=== PATIENT | male | born 1935 | race Caucasian/White ===

== ENCOUNTER 2019-01-07 14:34 | Inpatient (IN) | payer OTHER ==
[~2019-01-07] VITALS: Ht 182.9 cm; Wt 119.3 kg
[~2019-01-07 14:34] MED LIST: AMARYL2 M1 PO; GABAPENTIN 100100 MG PO; LEVAQUIN 500 M500 M2 PO; LEVOTHYROXIN0.125 M1 PO; LIPITOR10 MG PO; TRAMADOL 50 MG50 MG PO; VALACYCLOVIR500 MG PO; ZOFRAN ODT4 MG DISSOLVE
[2019-01-07 14:40] VITALS: BP 172/94
[2019-01-07 14:57] LABS: ABSOLUTE BASOPHILS 0.1 thou/uL (0.0-0.2); ABSOLUTE EOSINOPHILS 0.3 thou/uL (0.0-0.7); ABSOLUTE LYMPHOCYTES 2.3 thou/uL (0.8-5.3); ABSOLUTE MONOCYTES 0.9 thou/uL (0.0-1.2); BASOPHILS 0.7 %; EOSINOPHILS 2.6 %; HEMATOCRIT 42.4 % (42.0-52.0); HEMOGLOBIN 14.6 gm/dL (14.0-18.0); MCH 29.9 pg (26.0-34.0); MCHC 34.5 g/dL (28.0-37.0); MCV 86.5 fL (80.0-100.0); MONOCYTES 9.4 %; MPV 7.9 fl. (7.2-11.1); NUCLEATED RBCS 0 /100WBC; PLATELET COUNT* 229 thou/uL (150-400); POLYS 63.3 %; RDW-CV 14.4 % (10.5-14.5); WBC 9.5 thou/uL (4.0-11.0)
[2019-01-07 15:08] LABS: PROTIME 10.4 Seconds (9.20-11.50)
[2019-01-07 15:11] LABS: ANION GAP 10 mmol/L (7-16); BUN 17 mg/dL (7-18); CALCIUM 9.9 mg/dL (8.5-10.1); CHLORIDE 99 mmol/L (98-107); CO2 27 mmol/L (21-32); CREATININE 1.2 mg/dL (0.6-1.3); GLUCOSE 272 mg/dL (70-99); POTASSIUM 4.3 mmol/L (3.5-5.1); SODIUM 136 mmol/L (136-145)
[2019-01-07 15:22] LABS: ALBUMIN 3.7 g/dL (3.4-5.0); ALKALINE PHOSPHATASE 70 U/L (46-116); LIPASE 100 U/L (73-393); NT-PRO BRAIN NAT PEPTIDE 69 pg/mL (<300); SGOT 23 U/L (15-37); SGPT 41 U/L (30-65); TOTAL PROTEIN 7.4 g/dL (6.4-8.2); TROPONIN-I LEVEL <0.06 ng/mL (<0.06)
[2019-01-07 19:00] VITALS: BP 151/79
[2019-01-07 20:20] VITALS: BP 157/71
[2019-01-07 23:56] VITALS: BP 132/68
[2019-01-08 04:00] VITALS: BP 150/58
[2019-01-08 04:19] LABS: HEMATOCRIT 39.7 % (42.0-52.0); HEMOGLOBIN 13.7 gm/dL (14.0-18.0); MCH 29.8 pg (26.0-34.0); MCHC 34.5 g/dL (28.0-37.0); MCV 86.3 fL (80.0-100.0); MPV 7.7 fl. (7.2-11.1); RBC 4.6 mil/uL (4.50-6.00); RDW-CV 13.9 % (10.5-14.5); WBC 9.5 thou/uL (4.0-11.0)
[2019-01-08 04:59] LABS: ALBUMIN 3.1 g/dL (3.4-5.0); CREATININE 1.2 mg/dL (0.6-1.3); POTASSIUM 4.1 mmol/L (3.5-5.1); TOTAL BILIRUBIN 0.7 mg/dL (<0.1-1.0); TOTAL PROTEIN 6.3 g/dL (6.4-8.2)
[2019-01-08 08:00] VITALS: BP 156/80
--- NOTE | 2019-01-08 11:15 | EKG ---
[place] [address] ELECTROCARDIOGRAM REPORT Name: PAM WILLIAMSON Room: [address] ADM IN [facility].#: [id number] Admission: 01/07/19 Attend Phys: Tru Haney Discharge: Date of : 39 Report #: [id number] THIS REPORT FOR: //name// [facility] ED Test Date: 2019-01-07 Test Time: 14:37:32 Pat Name: PAM WILLIAMSON Department: Room: [facility] Gender: M Equalizer Operator: TP : 1935 Requested By: Alexia Hahn Order Number: [id number] MD: Paul Ramírez Measurements Intervals [place] Rate: 76 P: -23 MD: 228 QRS: -65 QRSD: 145 T: 47 QT: 418 QTc: 471 Interpretive Statements Sinus rhythm Prolonged MD interval RBBB and LAFB Left ventricular hypertrophy Baseline wander in lead(s) III,V4 Compared to ECG 02/25/2016 10:37:56 First degree AV block now present Electronically Signed On 01-08-2019 11:15:03 CDT by Paul Ramírez [email or web address] <ELECTRONICALLY SIGNED> By: Paul Ramírez MD, [facility] 01/08/19 1115 1437 1437 Paul Ramírez MD, [facility] /EPI
--- NOTE | 2019-01-08 11:19 | EKG ---
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
[2019-01-08 11:46] VITALS: BP 140/83
[2019-01-08 15:58] VITALS: BP 170/80
[2019-01-08 16:33] VITALS: BP 170/80
--- NOTE | 2019-01-09 14:54 | CARDNUC ---
[place] [address] CARDIAC NUCLEAR IMAGING REPORT Name: WILLIAMSONPAMRICHARD SNIDER Room: [address] IN [facility]#: [id number] Admission: 01/07/19 Attend Phys: Freddy Morton Discharge: 01/08/19 Date of : 39 Date of Service: 01/09/19 1453 Report #: [id number] THIS REPORT FOR: //name// APPROVED REPORT Imaging Protocol: Stress Tc-99m/Rest Tc-99m 2 days Study performed: 01/08/2019 08:54:00 Indication: Chest pain, left sided facial numbness. Patient Location: In-Patient Room #: [facility] Stress Tech: Olivia Puga Stress Nurse: Catrina Trevizo RN NM Tech:RAFAEL Yost Ht: 6 ft 0 in Wt: 263 lbs BSA: 2.39 m2 BMI: 35.66 Medical History Medical History: Angina, Cardiomyopathy, Diabetes, Fatigue, RBBB, LVH, LAFB, Systolic Murmur, HTN, Obesity , Weakness . Medications: Metformin, No cardiac meds. Allergies: Acetaminophen, Diphenhydramine. Cardiac Risk Factors: Age, DM, HTN, family HX unknown. Previous Cardiac Procedures: None Pretest Chest Pain Characteristics: No chest pain Exercise History: Indeterminate Physical Disabilities: Generalized weakness/fatigue, unsteady gait. Meds Held (24 hrs): None Resting Data Rest SPECT myocardial perfusion imaging was performed in supine position 30 minutes following the intravenous injection of 29.0 mCi of Tc-99m Sestamibi. Time of rest injection: 1020 Date: 01/09/2019 The images were gated to evaluate regional wall motion and calculate left ventricular ejection fraction. Administration Route: Straight Stick Administration Site: Right Arm Pharmacologic Stress Pharmacologic stress test was performed by injecting Regadenoson 0.4 mg IV push over 10-15 seconds immediately followed by the intravenous injection of 35.9 mCi of Tc-99m [place] [address] CARDIAC NUCLEAR IMAGING REPORT Name: PAM WILLIAMSON Room: [address]#: [id number] Admission: 01/07/19 Attend Phys: Freddy Morton Discharge: 01/08/19 Date of : 39 Date of Service: 01/09/19 1453 Report #: [id number] Time of stress injection: 1335 Date: 01/08/2019 Administration Route: IV Administration Site: Right Arm Gated Stress SPECT was performed 40 minutes after stress injection. The images were gated to evaluate regional wall motion and calculate left ventricular ejection fraction. Prone imaging was performed. Stress Test Details Stress Test: Pharmacologic stress testing performed using 0.4 mg of regadenoson per 5 mL given IV over 10 seconds. Reason for pharmacologic stress test: Generalized weakness, unsteady gait.. HR Max Heart Rate (APMHR): 139 bpm Resting HR: 62 bpm Target HR (85% APMHR): 118 bpm Max HR Achieved: 93 bpm % of APMHR: 66 Recovery HR: 86 bpm BP Resting BP: 157/93 mmHg Max BP: 131/87 mmHg Recovery BP: 155/95 mmHg ECG Resting ECG: Sinus Rhythm, RBBB Stress ECG: Sinus Rhythm, RBBB ST Change: None Arrhythmia: None Recovery ECG: Sinus Rhythm, RBBB Recovery ST Change: None Recovery Arrhythmia: None Clinical Reason for Termination: Completed protocol Stress Symptoms: Nausea Exercise duration: 00 min 00 sec Exercise capacity: 1.00 METs The patient tolerated Lexiscan infusion without significant cardiac symptoms. Nurse Comments An 83 year old male inpatient presented for sitting Lexiscan stress test r/t recent HX of CP and left sided facial numbness. Patient tolerated test well. Recovery unremarkable with PO caffeine, [place] [address] CARDIAC NUCLEAR IMAGING REPORT Name: PAM WILLIAMSON Room: [address] IN M..#: [id number] Admission: 01/07/19 Attend Phys: Freddy Morton Discharge: 01/08/19 Date of : 39 Date of Service: 01/09/19 1453 Report #: [id number]. Patient was escorted via wheelchair by staff to Nuclear Medicine for images. Patient was stable with no complaints at that time. Stress ECG Conclusion The baseline 12-lead EKG shows right bundle branch block and sinus rhythm without acute ST or T wave abnormality. EKGs obtained during and post exercise infusion show sinus rhythm with no significant ST or T wave changes when compared to baseline. There were no stress-induced arrhythmias. Study Quality Study: Fair Artifact: Moderate Diaphragmatic artifact Study Data At rest, the left ventricular ejection fraction was 50%.. Post stress, the left ventricular ejection was 53%.. TID = 0.89. Perfusion Perfusion images at rest and post Lexiscan stress show a large in size moderate intensity defect involving the base to distal inferior wall. No reversible defects were identified. Review of the raw data does show significant attenuation artifact. Wall Motion Gated images show akinesis of the anterior anteroseptal wall. No other wall motion abnormalities were noted. Nuclear Conclusion ECG Findings: negative for ischemia Clinical Findings: negative for ischemia Nuclear Findings: negative for ischemia Exercise Capacity: not assessed Left Ventricular Function: abnormal Myocardial perfusion images suggest prior infarct of the inferior wall. There is a extracardiac uptake and diaphragmatic attenuation artifact in this region however there are also wall motion abnormalities observed on gated studies in the inferior wall. No reversible defects were identified to suggest ongoing ischemia. Left ventricular systolic function appeared mildly decreased. This is not a high risk study. <Conclusion> The baseline 12-lead EKG shows right bundle branch [place] [address] CARDIAC NUCLEAR IMAGING REPORT Name: PAM WILLIAMSON Room: [address] IN [facility]#: [id number] Admission: 01/07/19 Attend Phys: Freddy Morton Discharge: 01/08/19 Date of : 39 Date of Service: 01/09/19 1453 Report #: [id number] rhythm without acute ST or T wave abnormality. EKGs obtained during and post exercise infusion show sinus rhythm with no significant ST or T wave changes when compared to baseline. There were no stress-induced arrhythmias. <ELECTRONICALLY SIGNED> By: René Logan MD, FACC 01/09/19 1453 52 52 René Logan MD, FACC /INF
--- NOTE | 2019-01-10 08:16 | CON ---
[address] [address] CONSULTATION Name: WILLIAMSONPAMRICHARD SNIDER Room: [address] IN M.R.#: [id number] Admission: 01/07/19 Attend Phys: Tru Haney Discharge: 01/08/19 Date of : 39 Report #: [id number] THIS REPORT FOR: //name// CC: Jason Salas DATE OF SERVICE: 01/08/2019 CARDIOLOGY CONSULTATION HISTORY OF PRESENT ILLNESS: The patient is an 83-year-old white male who I was asked to see in the hospital after he complained of chest pain. The patient is actually followed by Dr. Laboy a garment form assembler in [place]. He has a long history of chest pain. He apparently has had stress test in the past, but never had a heart catheterization. He has a long history of a heart murmur. He was told he had mild aortic stenosis. He is not very active because of chronic back pain. He has had previous epidurals and a cortisone injection in his shoulder in the past. He awakened yesterday morning with pain in his chest. He describes it as a sharp pain. He also has some shoulder pain. It persisted throughout the day, so he finally drove himself to the [facility] yesterday and was admitted. Denied any associated shortness of breath, diaphoresis and nausea. He has had no recent fever or cough. He denied any blood in stool. He had no rash. He denies any recent vomiting. PAST MEDICAL HISTORY: He has a history of diabetes. No history of hypertension or hyperlipidemia. PAST SURGICAL HISTORY: He has had previous thyroid surgery and prostate surgery. MEDICATIONS: Glyburide. ALLERGIES: HE HAS A PREVIOUS INTOLERANCE TO ACETAMINOPHEN. FAMILY HISTORY: Negative for heart disease. SOCIAL HISTORY: He is . He and his live in [place]. 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 No smoking or alcohol abuse. REVIEW OF SYSTEMS: He has had no history of stroke, asthma, peptic ulcer disease, liver disease, kidney disease, cancer, chronic skin condition and psychiatric illness. PHYSICAL EXAMINATION: GENERAL: Revealed an elderly male, lying in bed. [place] [address] CONSULTATION Name: PAM WILLIAMSON Room: [address]#: [id number] Admission: 01/07/19 Attend Phys: Tru Haney Discharge: 01/08/19 Date of : 39 Report #: [id number] VITAL SIGNS: He had a blood pressure of 150/60, pulse is 60. He is afebrile. HEENT: He was anicteric. Conjunctivae are pink. Mucous membranes moist. NECK: Neck veins do not appear distended. No carotid bruits. Neck supple. CHEST: Clear to auscultation. CARDIOVASCULAR: Regular rate and rhythm, grade 3 mid-peaking systolic ejection murmur along the sternal border. ABDOMEN: Soft. EXTREMITIES: Had no pedal edema. Posterior pulse 2+ bilaterally. SKIN: Cool and dry. NEUROLOGIC: Nonfocal. LYMPHATICS: No adenopathy. MUSCULOSKELETAL: No joint effusion. DIAGNOSTIC DATA: His ECG on admission yesterday showed a sinus rhythm, left anterior fascicular block and a right bundle-branch block. He had an ECG during chest pain, again showed sinus rhythm, left anterior fascicular block and right bundle-branch block. His workup, he had portable chest x-ray done yesterday in the Emergency Room that showed cardiomegaly, clear lung askew. LABORATORY WORK: Sodium 137, BUN 16, creatinine 1.2, glucose 236. His liver function studies were normal. Albumin 3.1. Troponins all 0.06. TSH 1.3. White blood cell count 9.5, hemoglobin 13.7. IMPRESSION AND RECOMMENDATIONS: 1. Chest pain. Atypical for angina. Suspect musculoskeletal. The patient cannot walk on a treadmill. Because of his abnormal ECG, I would recommend a Lexiscan Cardiolite. 2. Chronic back pain. The patient received epidurals in the past. 3. Mild aortic stenosis. 4. Diabetes. <ELECTRONICALLY SIGNED> By: Paul Ramírez MD, FACC 01/10/19 0816 0844 0942Dacourtney Ramírez MD, FAC /nt
== END 2019-01-08 18:35 | disposition left against medical advice (07) | DRG 206 ==
LOC: M.ERS 14:34 → M.TBA-ER 17:08 → M.2W 17:08
PROVIDERS: Personal Emergency Response Attendant; ADMIT Internal Medicine
DX: M94.0 Chondrocostal junction syndrome [Tietze] (principal); G89.29 Other chronic pain; M54.9 Dorsalgia, unspecified; I35.0 Nonrheumatic aortic (valve) stenosis; E89.0 Postprocedural hypothyroidism; E05.90 Thyrotoxicosis, unspecified without thyrotoxic crisis or storm; E11.65 Type 2 diabetes mellitus with hyperglycemia; Z53.21 Procedure and treatment not carried out due to patient leaving prior to being seen by health care provider; Z88.8 Allergy status to other drugs, medicaments and biological substances; Z83.3 Family history of diabetes mellitus; Z80.0 Family history of malignant neoplasm of digestive organs; Z79.899 Other long term (current) drug therapy; Z81.8 Family history of other mental and behavioral disorders; Z79.82 Long term (current) use of aspirin

== ENCOUNTER 2021-04-19 18:25 | Observation (INO) | payer MEDICARE ==
[~2021-04-19] VITALS: Ht 182.9 cm; Wt 104.3 kg
--- NOTE | ~2021-04-19 | CON ---
[address] [address] CONSULTATION Name: PAM WILLIAMSON Room: [place] [address] ADM IN M.R.#: [id number] Admission: 04/19/21 Attend Phys: Lauren Li MD Discharge: Date of : 39 Report #: [id number] THIS REPORT FOR: cc: Jason Henderson,Jason Ramirez,Chas Brown MD ~ DATE OF CONSULTATION: 04/20/2021 HISTORY OF PRESENT ILLNESS: This is an 86-year-old male patient who was seen by me for somewhat unusual symptoms. He said he is having episode where the whole right side goes numb. That is going on for 2-3 days. These episodes come spontaneously and then become better. There is not much weakness associated with it. He has not had any stroke before. REVIEW OF SYSTEMS: Review of systems indicate some visual disturbances, which has resolved. He does have a murmur in the heart. He does not believe he had a stroke in the past. His of 65 recently and he has been under stress. He takes some medication for the stress. He says he does not take it frequently, but he does not remember the name of the medication. He is not having any chest pain, respiratory difficulty, GI, , musculoskeletal, constitutional, dermatological, hematological, psychiatric symptoms, associated with present symptomatology. There is no allergic symptom. PAST MEDICAL HISTORY: Negative for stroke. FAMILY HISTORY: Negative for early age stroke. SOCIAL HISTORY: He does not abuse alcohol or smoke. PHYSICAL EXAMINATION: The patient's examination indicate is alert and responsive. His speech, concentration, fund of knowledge and memory is at his baseline. Cranial nerve examination II-XII looks unremarkable. Objectively, strength, sensation, reflexes and tone in all 4 extremities looks good. He can tell me the position sense on the right side reasonably well. I could not look at his fundus. He is a very well-developed individual who does not have any dysmorphic features of eyes, ears and face. His cardiac examination does indicate murmur. Respiratory examinations appear unremarkable. His pulses are palpable. He has no edema, cyanosis or jaundice. Blood pressure is 137/87, respiration is 18, pulse is 76, temperature is 97.9. LABORATORY DATA: White count is normal. GFR is normal. IMPRESSION AND PLAN: Somewhat of an unusual symptoms, which can be TIA or anxiety. He needs further workup. That is difficult. HE SAYS HE IS ALLERGIC TO DYE. Therefore, he says he cannot take iodine. [place] [address] CONSULTATION Name: WILLIAMSONPAMRICHARD SNIDER Room: [address] IN ..#: [id number] Admission: 04/19/21 Attend Phys: Lauren Li MD Discharge: Date of : 39 Report #: [id number] He does not know if he can do the MRI or not, but he wants to try that. We will give him some Valium before that and see if he is able to do that. To cut down that time there, I will get an echocardiogram done. I will do a carotid Doppler in that regard and we will see if we can get an MRI done, that will be the easiest one. We will also get an echocardiogram. Rest of the workup and management will depend upon the outcome of these testing. Thank you very much for this referral. By: 0930 0951Chas Huff MD /nt
[2021-04-19 19:06] VITALS: BP 165/81
[2021-04-19] MEDS ORDERED: OZEMPIC0.25 MG/0. SUBQ (19:16)
[2021-04-19 20:07] LABS: ABSOLUTE BASOPHILS 0.1 thou/uL (0.0-0.2); ABSOLUTE EOSINOPHILS 0.3 thou/uL (0.0-0.7); ABSOLUTE LYMPHOCYTES 2.3 thou/uL (0.8-5.3); ABSOLUTE NEUTROPHILS 5.4 thou/uL (1.6-8.1); BASOPHILS 1.1 %; EOSINOPHILS 3.3 %; HEMATOCRIT 40.2 % (42.0-52.0); HEMOGLOBIN 13.9 gm/dL (14.0-18.0); LYMPHOCYTES 25.5 %; MCH 29.6 pg (26.0-34.0); MCHC 34.6 g/dL (28.0-37.0); MCV 85.5 fL (80.0-100.0); MONOCYTES 11.2 %; MPV 8.1 fl. (7.2-11.1); NUCLEATED RBCS 0 /100WBC; PLATELET COUNT* 268 thou/uL (150-400); POLYS 58.9 %; RBC 4.71 mil/uL (4.50-6.00); RDW-CV 14.4 % (10.5-14.5); WBC 9.1 thou/uL (4.0-11.0)
[2021-04-19 20:17] LABS: CALCIUM 8.9 mg/dL (8.5-10.1); CREATININE 1.2 mg/dL (0.6-1.3); POTASSIUM 3.8 mmol/L (3.5-5.1)
[2021-04-19 20:22] LABS: ALBUMIN 3.9 g/dL (3.4-5.0); TOTAL BILIRUBIN 0.9 mg/dL (<0.1-1.0); TOTAL PROTEIN 7.4 g/dL (6.4-8.2)
[2021-04-20 02:11] VITALS: BP 134/74
[2021-04-20 06:11] VITALS: BP 129/76
[2021-04-20 10:00] VITALS: BP 137/87
[2021-04-20 10:55] LABS: ABSOLUTE BASOPHILS 0.1 thou/uL (0.0-0.2); ABSOLUTE EOSINOPHILS 0.2 thou/uL (0.0-0.7); ABSOLUTE MONOCYTES 0.8 thou/uL (0.0-1.2); ABSOLUTE NEUTROPHILS 5.4 thou/uL (1.6-8.1); BASOPHILS 0.8 %; EOSINOPHILS 2.6 %; HEMATOCRIT 39.5 % (42.0-52.0); HEMOGLOBIN 13.4 gm/dL (14.0-18.0); LYMPHOCYTES 23.4 %; MCH 29.5 pg (26.0-34.0); MCV 86.8 fL (80.0-100.0); MONOCYTES 9.2 %; MPV 7.5 fl. (7.2-11.1); NUCLEATED RBCS 0 /100WBC; PLATELET COUNT* 234 thou/uL (150-400); RBC 4.55 mil/uL (4.50-6.00); RDW-CV 14.6 % (10.5-14.5); WBC 8.5 thou/uL (4.0-11.0)
--- NOTE | 2021-04-20 11:04 | EKG ---
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 : 1935 Requested By: Stevenson Bello Order Number: [id number] MD: Paul Ramírez Measurements Intervals [place] Rate: 62 P: 16 NH: 67 QRS: -65 QRSD: 150 T: 43 QT: 489 QTc: 497 Interpretive Statements Sinus rhythm Short [place] interval RBBB and LAFB Left ventricular hypertrophy Compared to ECG 01/08/2019 03:40:03 rate has increased Electronically Signed On 04-20-2021 11:04:14 LEASE ADMINISTRATION SUPERVISOR by Paul Ramírez [email or web address] <ELECTRONICALLY SIGNED> By: Paul Ramírez MD, [facility] 04/20/21 1104 54 54 Paul Ramírez MD, [facility] /EPI
[2021-04-20 11:07] LABS: APTT 28.8 Seconds (25.0-31.3); INR 1.1; PROTIME 11.3 Seconds (9.20-11.50)
[2021-04-20 11:12] LABS: ALBUMIN 3.4 g/dL (3.4-5.0); CALCIUM 8.9 mg/dL (8.5-10.1); CREATININE 1.4 mg/dL (0.6-1.3); MAGNESIUM 2.2 mg/dL (1.8-2.4); PHOSPHORUS* 3.9 mg/dL (2.5-4.9); POTASSIUM 4.2 mmol/L (3.5-5.1); TOTAL BILIRUBIN 0.7 mg/dL (<0.1-1.0); TOTAL PROTEIN 6.8 g/dL (6.4-8.2)
--- NOTE | 2021-04-20 13:03 | 2DMMODE ---
[place] [address] 2 D/M-MODE ECHOCARDIOGRAM Name: PAM WLILIAMSON Room: [place] [address] ADM IN [facility].Mg.#: [id number] Admission: 04/19/21 Attend Phys: Lauren Li, Discharge: Date of : 39 Date of Service: 04/20/21 1303 Report #: [id number] THIS REPORT FOR: cc: Jason Henderson Gregory DO Blick,Paul Allen MD [facility] ~ APPROVED REPORT Study performed: 04/20/2021 11:44:48 EXAM: Comprehensive 2D, Doppler, and color-flow Echocardiogram Patient Location: Bedside BSA: 2.26 HR: 76 bpm BP: 137/87 mmHg Other Information Study Quality: Adequate Indications Stroke Echo Enhancing Agent Indication: Rule out Shunt Agent(s) / Amount(s) Used: Agitated Saline 6 cc 2D Dimensions IVSd: 14.71 (7-11mm) LVOT Diam: 30.10 (18-24mm) LVDd: 48.67 mm PWd: 15.14 (7-11mm) Ascending Ao: 44.22 (22-36mm) LVDs: 36.30 (25-40mm) Aortic Root: 49.15 mm Volumes Left Atrial Volume (Systole) LA ESV Index: 23.40 mL/m2 Aortic Valve AoV Peak Ventura.: 3.59 m/s AO Peak Gr.: 51.41 mmHg LVOT Max P.69 mmHg AO Mean Gr.: 28.43 mmHg LVOT Mean P.12 mmHg LVOT Max V: 0.65 m/s AO V2 VTI: 83.98 cm LVOT Mean V: 0.51 m/[place] [address] 2 D/M-MODE ECHOCARDIOGRAM Name: PAM WILLIAMSON Room: [place] [address] ADM IN M.R.#: [id number] Admission: 04/19/21 Attend Phys: Lauren Li, Discharge: Date of : 39 Date of Service: 04/20/21 1303 Report #: [id number] VALERIO (VTI): 1.60 cm2 LVOT V1 VTI: 18.86 cm Mitral Valve E/A Ratio: 0.55 MV Decel. Time: 314.94 ms MV E Max Ventura.: 0.39 m/s MV PHT: 91.33 ms MVA (PHT): 2.41 cm2 TDI E/Lateral E': 6.50 E/Medial E': 6.50 Medial E' Ventura.: 0.06 m/s Lateral E' Ventura.: 0.06 m/s Pulmonary Valve PV Peak Ventura.: 0.87 m/s PV Peak Gr.: 3.02 mmHg Tricuspid Valve RAP Estimate: 5.00 mmHg TR Peak Gr.: 9.49 mmHg RVSP: 14.49 mmHg PA Pressure: 14.49 mmHg Left Ventricle The left ventricle is normal size. There is normal LV segmental wall motion. Moderate concentric left ventricular hypertrophy. Left ventricular systolic function is normal. The left ventricular ejection fraction is within the normal range. LVEF is 55-60%. Grade I - abnormal relaxation pattern. Right Ventricle The right ventricle is normal size. The right ventricular systolic function is normal. Atria The left atrium size is normal. Injection of bubbles documented no interatrial shunt. The right atrium size is normal. Aortic Valve Aortic valve is calcified. Trace aortic regurgitation. Moderate aortic stenosis. Mitral Valve The mitral valve is normal in structure. Mild mitral annular calcification. There is no mitral valve regurgitation noted. No evidence of mitral [place] [address] 2 D/M-MODE ECHOCARDIOGRAM Name: SOM WILLIAMSONRICHARD SNIDER Room: [address] IN [facility]#: [id number] Admission: 04/19/21 Attend Phys: Lauren Li, Discharge: Date of : 39 Date of Service: 04/20/21 1303 Report #: [id number] Tricuspid Valve The tricuspid valve is normal in structure. Trace tricuspid regurgitation. Pulmonic Valve The pulmonary valve is normal in structure. There is no pulmonic valvular regurgitation. Great Vessels Aortic root is moderately to severely dilated. The ascending aorta is mildly to moderately dilated. IVC is normal in size and collapses >50% with inspiration. Pericardium There is no pericardial effusion. <Conclusion> Moderate concentric left ventricular hypertrophy. LVEF is 55-60%. Moderate aortic stenosis. Injection of bubbles documented no interatrial shunt. <ELECTRONICALLY SIGNED> By: Paul Ramírez MD, [facility] 04/20/21 1303 1303 1303 Paul Ramírez MD, FACC /INF
[2021-04-20 15:34] VITALS: BP 134/56
[2021-04-20 18:35] VITALS: BP 144/52
[2021-04-20 22:11] VITALS: BP 137/71
[2021-04-21 02:11] VITALS: BP 130/65; BP 134/76
[2021-04-21 03:46] LABS: ALBUMIN 3.3 g/dL (3.4-5.0); ALKALINE PHOSPHATASE 78 U/L (46-116); ANION GAP 10 mmol/L (7-16); BUN 23 mg/dL (7-18); CALCIUM 8.6 mg/dL (8.5-10.1); CHLORIDE 104 mmol/L (98-107); CHOLESTEROL 152 mg/dL (<200); CO2 25 mmol/L (21-32); CREATININE 1.3 mg/dL (0.6-1.3); GLUCOSE 116 mg/dL (70-99); HDL CHOLESTEROL 39 mg/dL (>40); LDL CHOLESTEROL 90 mg/dL (<100); POTASSIUM 3.8 mmol/L (3.5-5.1); SGOT 19 U/L (15-37); SGPT 27 U/L (30-65); SODIUM 139 mmol/L (136-145); TC:HDL 3.9 Ratio (Not establshd); TOTAL BILIRUBIN 0.5 mg/dL (<0.1-1.0); TOTAL PROTEIN 6.7 g/dL (6.4-8.2); TRIGLYCERIDE 117 mg/dL (<150); VLDL 23 mg/dL (<40)
[2021-04-21 03:47] LABS: SERUM ASSESSMENT CLEAR
[2021-04-21 06:11] VITALS: BP 132/71
--- NOTE | 2021-04-21 09:50 | NUR ---
Pt is admitted on 04/19/20 to rule out CVA. Pt is alert and oriented x 3. Pt lives alone in a house with one step to enter. Pt is independent in mobility and ADL's. Pt fill presciptions at [facility] on [address] Pt has no hx of HH/SNF/ or DME. Pt last saw his PCP about a month ago. Pt requested to complete DPOA paperwork. This was prepared, signed, and notarized, and a copy was placed on the chart and pt was given original. CM to follow for discharge planning.
[2021-04-21 10:15] VITALS: BP 132/71
[2021-04-21] MEDS ORDERED: ZESTRIL5 MG PO (13:29)
[2021-04-21] MEDS ORDERED: LIPITOR 40 MG T40 M1 PO (13:29)
[2021-04-21] MEDS ORDERED: ASA81BEC PO (14:19)
[2021-04-21 15:43] VITALS: BP 132/71
[2021-04-21 15:49] VITALS: BP 149/72
[2021-04-22 07:09] LABS: GLYCOHEMOGLOBIN (HGB A1C) 6.1 % (4.8-5.6)
== END 2021-04-21 16:01 | disposition home or self-care (01) ==
LOC: M.ERS 18:25 → M.TBA-ER 22:11
PROVIDERS: Emergency Medicine Emergency Medical Services; Internal Medicine; ADMIT Internal Medicine; ATTEND Internal Medicine
DX: G45.9 Transient cerebral ischemic attack, unspecified (principal); Z20.822 Contact with and (suspected) exposure to COVID-19; E11.9 Type 2 diabetes mellitus without complications; E78.5 Hyperlipidemia, unspecified; E03.9 Hypothyroidism, unspecified; G43.909 Migraine, unspecified, not intractable, without status migrainosus; R20.0 Anesthesia of skin; R53.1 Weakness; Z79.899 Other long term (current) drug therapy

== ENCOUNTER 2021-05-05 10:45 | Emergency (ER) | payer MEDICARE ==
[~2021-05-05] VITALS: Ht 182.9 cm; Wt 104.3 kg
[~2021-05-05 10:45] MED LIST changes: +ASA81BEC PO; +LIPITOR 40 MG T40 M1 PO; +OZEMPIC0.25 MG/0. SUBQ; +ZESTRIL5 MG PO
[2021-05-05 11:24] LABS: ABSOLUTE BASOPHILS 0.1 thou/uL (0.0-0.2); ABSOLUTE EOSINOPHILS 0.2 thou/uL (0.0-0.7); ABSOLUTE LYMPHOCYTES 2.2 thou/uL (0.8-5.3); ABSOLUTE MONOCYTES 0.9 thou/uL (0.0-1.2); ABSOLUTE NEUTROPHILS 5.7 thou/uL (1.6-8.1); BASOPHILS 0.7 %; EOSINOPHILS 2.5 %; HEMATOCRIT 42.9 % (42.0-52.0); HEMOGLOBIN 14.4 gm/dL (14.0-18.0); LYMPHOCYTES 24.2 %; MCH 29.4 pg (26.0-34.0); MCHC 33.5 g/dL (28.0-37.0); MCV 87.8 fL (80.0-100.0); MONOCYTES 9.4 %; MPV 7.9 fl. (7.2-11.1); NUCLEATED RBCS 0 /100WBC; PLATELET COUNT* 239 thou/uL (150-400); POLYS 63.2 %; RBC 4.89 mil/uL (4.50-6.00); RDW-CV 14.5 % (10.5-14.5)
[2021-05-05 11:34] LABS: CREATININE 1.2 mg/dL (0.6-1.3); POTASSIUM 4.4 mmol/L (3.5-5.1)
[2021-05-05 11:38] LABS: ALBUMIN 4.2 g/dL (3.4-5.0); TOTAL BILIRUBIN 0.9 mg/dL (<0.1-1.0); TOTAL PROTEIN 7.7 g/dL (6.4-8.2)
--- NOTE | 2021-05-05 12:30 | EKG ---
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: [facility] : 1935 Requested By: Eitan Hunter Order Number: [id number] MD: Paul Ramírez Measurements Intervals [place] Rate: 57 P: 28 TN: 209 QRS: -65 QRSD: 148 T: 48 QT: 493 QTc: 480 Interpretive Statements Sinus rhythm RBBB and LAFB Left ventricular hypertrophy Compared to ECG 04/19/2021 19:55:36 Short [place] interval no longer present Electronically Signed On 05-05-2021 12:30:38 TECHNICAL SUPPORT INTERNSHIP by Paul Ramírez [email or web address] <ELECTRONICALLY SIGNED> By: Paul Ramírez MD, [facility] 05/05/21 1230 1143 1143 Paul Ramírez MD, [facility] /EPI
[2021-05-05 13:56] LABS: URINE BILIRUBIN NEGATIVE (Negative); URINE BLOOD NEGATIVE (Negative); URINE CLARITY CLEAR; URINE COLOR YELLOW; URINE GLUCOSE-RANDOM NEGATIVE (Negative); URINE KETONES NEGATIVE (Negative); URINE LEUKOCYTES-REFLEX NEGATIVE (Negative); URINE NITRITE-REFLEX NEGATIVE (Negative); URINE PROTEIN NEGATIVE (Negative); URINE UROBILINOGEN 0.2 E.U./dl (0.2-1.0)
[2021-05-05 14:27] VITALS: BP 132/67
--- NOTE | 2021-05-06 09:57 | EKG ---
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 Cook: [facility] : 1935 Requested By: Eitan Hunter Order Number: [id number] MD: Paul Ramírez Measurements Intervals [place] Rate: 0 P: 0 IN: QRS: 0 QRSD: T: QT: QTc: 0 Interpretive Statements All 12 leads are missing Compared to ECG 04/19/2021 19:55:36 Sinus rhythm no longer seen Left anterior fascicular block no longer present Right bundle-branch block no longer present Left ventricular hypertrophy no longer present Electronically Signed On 05-06-2021 9:56:47 MARINE PAINTER by Paul Ramírez [email or web address] <ELECTRONICALLY SIGNED> By: Paul Ramírez MD, [facility] 05/06/21 0956 1141 1141 Paul Ramírez MD, [facility] /EPI
== END 2021-05-05 14:28 | disposition home or self-care (01) ==
LOC: M.ERS 10:45
PROVIDERS: Physician Assistant
DX: I10 Essential (primary) hypertension (principal); E11.9 Type 2 diabetes mellitus without complications; Z98.890 Other specified postprocedural states; Z79.899 Other long term (current) drug therapy; Z88.6 Allergy status to analgesic agent; Z88.5 Allergy status to narcotic agent